=== PATIENT | male | born 1930 | race Caucasian/White ===

== ENCOUNTER 2020-12-07 14:18 | Inpatient (IN) ==
[2020-12-07] MEDS ORDERED: Naloxone 0.4 MG/ML INJ IVP PRN (19:27)
[2020-12-07] MEDS ORDERED: Isovue-370 500 ML BOTTLE IVP ONE (20:05)
[2020-12-07 20:14] LABS: Lymphocytes % 21.4 %; Red Cell Distribution Width 14.6 % (11.5-14.5)
[2020-12-07 20:16] LABS: Basophils % 0.2 %; Eosinophils % 0.4 %; Hematocrit 26.3 % (37.5-50.1); Hemoglobin 8.5 g/dL (12.9-16.9); Immature Granulocytes % 1.4 % (0-4); Lymphocytes # 1.2 K/mcL (0.6-4.6); Mean Corpuscular HGB Conc 32.3 g/dL (31.6-35.5); Mean Corpuscular Hemoglobin 29.4 pg (28.0-33.3); Mean Platelet Volume 11.4 fL (9.4-12.4); Monocytes # 1.3 K/mcL (0.0-1.3); Monocytes % 23.6 %; Red Blood Count 2.89 M/mcL (4.19-5.50); White Blood Count 5.6 K/mcL (4.3-11.1)
[2020-12-07 20:22] LABS: INR 1.4; Prothrombin Time 15.8 Seconds (9.4-12.1)
[2020-12-07 20:35] LABS: Alanine Aminotransferase 9 Units/L (7-52); Albumin 3.3 g/dL (3.5-5.7); Albumin/Globulin Ratio 1.3 (1.1-2.2); Alkaline Phosphatase 45 Units/L (34-104); Aspartate Amino Transferase 21 Units/L (13-39); BUN/Creatinine Ratio 19 (6-26); Bilirubin,Direct 0.4 mg/dL (0.0-0.2); Bilirubin,Total 1.4 mg/dL (0.3-1.0); Blood Urea Nitrogen 15 mg/dL (8-23); Calcium 8.1 mg/dL (8.6-10.3); Carbon Dioxide 22 mEq/L (23-29); Chloride 110 mEq/L (98-107); Globulin 2.5 g/dL (2.4-3.5); Glucose 91 mg/dL (70-105); Osmolality,Calculated 288 (280-300); Platelet Count 58 K/mcL (140-400); Potassium 3.1 mEq/L (3.5-5.1); Sodium 139 mEq/L (136-145); Total Protein 5.8 g/dL (6.4-8.9); eGFR For African Americans > 60 (> 60); eGFR For Non-African Americans > 60 (> 60)
[2020-12-07 20:36] LABS: Hypochromasia Present (Not Present); Platelet Estimate Decreased (Normal); Polychromasia 1+ (Not Present)
[2020-12-07] MEDS ORDERED: Saline Nasal Spray 44 ML BOTTLE NS PRN (23:38)
[2020-12-07] MEDS ORDERED: Oxymetazoline Nasal SPRAY BOTTLE NS PRN (23:42)
[2020-12-08 01:28] LABS: Hematocrit 25.3 % (37.5-50.1)
[2020-12-08 01:30] LABS: Basophils % 0.2 %; Eosinophils # 0.1 K/mcL (0.0-0.6); Eosinophils % 1.1 %; Hemoglobin 8.4 g/dL (12.9-16.9); Immature Granulocytes % 1.5 % (0-4); Immature Platelets 10.9 % (1.1-6.1); Lymphocytes # 1.3 K/mcL (0.6-4.6); Lymphocytes % 23.2 %; Mean Corpuscular HGB Conc 33.2 g/dL (31.6-35.5); Mean Corpuscular Hemoglobin 30.5 pg (28.0-33.3); Mean Platelet Volume 11.8 fL (9.4-12.4); Monocytes # 1.4 K/mcL (0.0-1.3); Monocytes % 26.5 %; Neutrophils # 2.6 K/mcL (1.6-8.9); Red Blood Count 2.75 M/mcL (4.19-5.50); Red Cell Distribution Width 14.5 % (11.5-14.5); Segmented Neutrophils % 47.5 %; White Blood Count 5.4 K/mcL (4.3-11.1)
[2020-12-08 01:32] LABS: Platelet Count 61 K/mcL (140-400)
[2020-12-08 01:47] LABS: BUN/Creatinine Ratio 19 (6-26); Blood Urea Nitrogen 15 mg/dL (8-23); Carbon Dioxide 21 mEq/L (23-29); Chloride 110 mEq/L (98-107); Glucose 85 mg/dL (70-105); Osmolality,Calculated 288 (280-300); Potassium 3.2 mEq/L (3.5-5.1); Sodium 139 mEq/L (136-145); eGFR For African Americans > 60 (> 60); eGFR For Non-African Americans > 60 (> 60)
[2020-12-08] MEDS: Pantoprazole 40 MG VIAL IVP SCH ×2 (02:11→05:18)
[2020-12-08 02:37] LABS: Platelet Estimate Decreased (Normal)
[2020-12-08] MEDS ORDERED: Cyanocobalamin (B-12) 1,000 MCG TABLET PO SCH (09:00)
[2020-12-08] MEDS ORDERED: 0.9 % Sodium Chloride 500 ML IVC ONE (10:08)
[2020-12-08 11:34] LABS: Hematocrit 25.8 % (37.5-50.1); Hemoglobin 8.5 g/dL (12.9-16.9)
[2020-12-08 12:59] VITALS: BP 130/58
[2020-12-08] MEDS ORDERED: Potassium Chloride Elixir 20 MEQ/15 ML UDC PO ONE (14:21)
== END 2020-12-08 15:44 | disposition home or self-care (01) | DRG 812 ==
LOC: 2NNU
PROVIDERS: ADMIT Internal Medicine; ATTEND Internal Medicine

== ENCOUNTER 2022-07-05 19:18 | Inpatient (IN) ==
[2022-07-05] MEDS ORDERED: *HR* HYDROcodone/Acet 5/325 mg TABLET PO ONE (21:22)
[2022-07-05 22:05] LABS: Basophils % 0.1 %; Mean Corpuscular HGB Conc 32.6 g/dL (31.6-35.5)
[2022-07-05 22:07] LABS: Hematocrit 31.3 % (37.5-50.1); Hemoglobin 10.2 g/dL (12.9-16.9); Immature Platelets 12.5 % (1.1-6.1); Lymphocytes # 1.2 K/mcL (0.6-4.6); Lymphocytes % 10.5 %; Mean Corpuscular Hemoglobin 30.2 pg (28.0-33.3); Mean Corpuscular Volume 92.6 fL (83.0-100.0); Mean Platelet Volume 11.5 fL (9.4-12.4); Monocytes # 3.9 K/mcL (0.0-1.3); Monocytes % 33.7 %; Red Blood Count 3.38 M/mcL (4.19-5.50); Red Cell Distribution Width 14.9 % (11.5-14.5); Segmented Neutrophils % 54.7 %; White Blood Count 11.6 K/mcL (4.3-11.1)
[2022-07-05 22:08] LABS: Neutrophils # 6.4 K/mcL (1.6-8.9); Platelet Count 65 K/mcL (140-400)
[2022-07-05 22:27] LABS: Albumin 4.1 g/dL (3.5-5.7); Albumin/Globulin Ratio 1.1 (1.1-2.2); Bilirubin,Total 1.8 mg/dL (0.3-1.0); Calcium 9.9 mg/dL (8.6-10.3); Globulin 3.7 g/dL (2.4-3.5); Magnesium 1.8 mg/dL (1.6-2.6); Total Protein 7.8 g/dL (6.4-8.9)
[2022-07-05] MEDS ORDERED: Morphine Sulfate 2 MG/ML SYRINGE IVP ONE (23:57)
[2022-07-06] MEDS ORDERED: Melatonin 3 MG TABLET PO PRN (01:04)
[2022-07-06] MEDS ORDERED: Acetaminophen 325 MG TABLET PO PRN (01:04)
[2022-07-06] MEDS ORDERED: Naloxone 0.4 MG/ML INJ IVP PRN (01:04)
[2022-07-06] MEDS ORDERED: Ondansetron 4 MG/2 ML VIAL IVP PRN (01:04)
[2022-07-06 02:57] LABS: Hematocrit 29.9 % (37.5-50.1); Hemoglobin 9.8 g/dL (12.9-16.9); Immature Platelets 13.2 % (1.1-6.1); Mean Corpuscular HGB Conc 32.8 g/dL (31.6-35.5); Mean Corpuscular Hemoglobin 30.5 pg (28.0-33.3); Mean Corpuscular Volume 93.1 fL (83.0-100.0); Mean Platelet Volume 11.9 fL (9.4-12.4); Red Blood Count 3.21 M/mcL (4.19-5.50); Red Cell Distribution Width 14.9 % (11.5-14.5); White Blood Count 11.6 K/mcL (4.3-11.1)
[2022-07-06 02:58] LABS: Platelet Count 63 K/mcL (140-400)
[2022-07-06 03:10] LABS: Calcium 9.5 mg/dL (8.6-10.3); Potassium 3.8 mEq/L (3.5-5.1)
[2022-07-06 03:23] LABS: Lymphocytes # 2.6 K/mcL (0.6-4.6); Monocytes # 3.7 K/mcL (0.0-1.3); Neutrophils # 5.3 K/mcL (1.6-8.9); Platelet Estimate Decreased (Normal)
[2022-07-06] MEDS: *HR* Heparin 5,000 UNIT/ML VIAL SQ SCH ×3 (05:31→22:29)
[2022-07-06 13:35] LABS: Source,Synovial Fluid Right Knee
[2022-07-06 13:43] LABS: Appearance,Synovial Fluid Cloudy (Clear-Hazy); Color,Synovial Fluid Straw (Straw)
[2022-07-06 14:07] LABS: Glucose,Synovial Fluid < 10 mg/dL (No Ref Range)
[2022-07-06] MEDS ORDERED: Oxymetazoline Nasal SPRAY BOTTLE 15ML NS PRN (17:08)
[2022-07-06] MEDS: Fluticasone Propionate Nasal 50 MCG/SPRAY BOTTLE NS SCH (18:01)
[2022-07-06] MEDS: allopurinoL 100 MG TABLET PO SCH (22:29)
[2022-07-07] MEDS: *HR* Heparin 5,000 UNIT/ML VIAL SQ SCH ×3 (07:44→19:54)
[2022-07-07] MEDS: Cyanocobalamin (B-12) 1,000 MCG TABLET PO SCH (08:08)
[2022-07-07] MEDS: Fluticasone Propionate Nasal 50 MCG/SPRAY BOTTLE NS SCH (08:08)
[2022-07-07] MEDS ORDERED: Gadolinium Contrast Agent (WT Based) IV PRN (10:57)
[2022-07-07 14:28] LABS: Hemoglobin 9.8 g/dL (12.9-16.9); Red Cell Distribution Width 15.2 % (11.5-14.5)
[2022-07-07 14:30] LABS: Hematocrit 30.6 % (37.5-50.1); Immature Platelets 14.6 % (1.1-6.1); Mean Corpuscular Hemoglobin 29.9 pg (28.0-33.3); Mean Corpuscular Volume 93.3 fL (83.0-100.0); Mean Platelet Volume 11.9 fL (9.4-12.4); Red Blood Count 3.28 M/mcL (4.19-5.50); White Blood Count 12.6 K/mcL (4.3-11.1)
[2022-07-07 14:34] LABS: Platelet Count 69 K/mcL (140-400)
[2022-07-07 14:41] LABS: Calcium 9.6 mg/dL (8.6-10.3); Potassium 3.6 mEq/L (3.5-5.1)
[2022-07-07 14:52] LABS: Lymphocytes # 0.5 K/mcL (0.6-4.6); Monocytes # 2.4 K/mcL (0.0-1.3); Neutrophils # 9.7 K/mcL (1.6-8.9); Platelet Estimate Decreased (Normal)
[2022-07-07] MEDS: allopurinoL 100 MG TABLET PO SCH (19:54)
[2022-07-08] MEDS: *HR* Heparin 5,000 UNIT/ML VIAL SQ SCH ×3 (06:38→20:34)
[2022-07-08] MEDS: Fluticasone Propionate Nasal 50 MCG/SPRAY BOTTLE NS SCH (09:40)
[2022-07-08] MEDS: Cyanocobalamin (B-12) 1,000 MCG TABLET PO SCH (09:40)
[2022-07-08] MEDS: allopurinoL 100 MG TABLET PO SCH (20:33)
[2022-07-09 05:42] VITALS: BP 120/51; PULSE 84; TEMP 99.1; O2SAT 97
[2022-07-09] MEDS: *HR* Heparin 5,000 UNIT/ML VIAL SQ SCH (06:45)
[2022-07-09] MEDS: Cyanocobalamin (B-12) 1,000 MCG TABLET PO SCH (09:50)
[2022-07-09] MEDS: Fluticasone Propionate Nasal 50 MCG/SPRAY BOTTLE NS SCH (09:55)
[2022-07-09] MEDS ORDERED: Flu Vac QV 22-23 (6MOS UP)/PF 0.5 ML SYRINGE IM ONE (10:07)
[2022-07-09 10:57] LABS: Adenovirus Not Detected (Not Detect); Coronavirus 229E Not Detected (Not Detect); Coronavirus HKU1 Not Detected (Not Detect); Coronavirus NL63 Not Detected (Not Detect); Coronavirus OC43 Not Detected (Not Detect); Human Metapneumovirus Not Detected (Not Detect); Human Rhinovirus/Enterovirus Not Detected (Not Detect); Influenza A Subtype 2009 H1 Not Detected (Not Detect); SARS-CoV-2 Not Detected (Not Detect)
[2022-07-09 10:58] LABS: Bordetella Pertussis Not Detected (Not Detect); Chlamydophila pneumoniae Not Detected (Not Detect); Influenza B Not Detected (Not Detect); Mycoplasma pneumoniae Not Detected (Not Detect); Parainfluenza Virus 1 Not Detected (Not Detect); Parainfluenza Virus 2 Not Detected (Not Detect); Parainfluenza Virus 3 Not Detected (Not Detect); Parainfluenza Virus 4 Not Detected (Not Detect); Respiratory Syncytial Virus Not Detected (Not Detect)
[2022-07-10 11:27] LABS: ANA IgG by ELISA NONE DETECTED (None Detected)
== END 2022-07-09 12:13 | disposition home health service (06) | DRG 566 ==
LOC: EMEROOARM 19:18 → 4WAOSI 19:18 → SUATTDRO 07-06 01:00 → 4WAOSI 07-06 01:42 → SUATTDRO 07-06 15:52
PROVIDERS: ADMIT Internal Medicine; ATTEND Hospitalist